=== PATIENT | male | born 1940 | race Caucasian/White ===

== ENCOUNTER 2023-08-29 10:55 | Emergency (ER) | payer MEDICARE ==
[~2023-08-29 10:55] MED LIST: Iopamidol 370 76% 100 ML VIAL ONE; Sodium Chloride 0.9% 100 ML BAG ONE
[2023-08-29] MEDS ORDERED: Piperacillin/Tazobactam 4.5 GM VIAL ONE (11:38)
[2023-08-29] MEDS ORDERED: Vancomycin 1 GM VIAL ONE (11:39)
[2023-08-29] MEDS ORDERED: Sodium Chloride 0.9% 100 ML ONE (11:39)
[2023-08-29] MEDS ORDERED: Sodium Chloride 0.9% 250 ML 250 ML ONE (11:39)
[2023-08-29 11:55] LABS: Hematocrit 27.8 % (42.0-52.0); Hemoglobin 8.7 g/dL (14.0-18.0); Mean Corpuscular HGB CONC 31.2 g/dL (32.0-36.0); Mean Corpuscular Hemoglobin 27.9 pg (27.0-31.0); Mean Corpuscular Volume 89.5 fl (78.0-98.0); Mean Platelet Volume 8.9 fL (7.4-10.4); Platelet Count 355 10x3/uL (130-400); RBC Distribution Width 17.7 % (11.5-14.5); White Blood Cell (WBC) Count 7.9 10x3/uL (4.8-10.8)
[2023-08-29 11:56] LABS: Manual Diff?? YES; Troponin I 0.019 ng/mL (< 0.028)
[2023-08-29 11:58] LABS: ALT (SGPT) 11 U/L (8-55); AST (SGOT) 33 U/L (5-34); Albumin 2.4 g/dL (3.4-4.8); Alkaline Phosphatase 81 U/L (40-110); Anion Gap 13 mmol/L (10-20); BUN (Urea Nitrogen) 13 mg/dL (8.4-25.7); Bilirubin, Total 0.8 mg/dL (0.2-1.2); Calc. Creatinine Clearance 0 mL/min (70-130); Calcium 8.4 mg/dL (7.8-10.44); Carbon Dioxide 26 mmol/L (23-31); Chloride 99 mmol/L (98-107); Estimated GFR 59; Globulin 4.4 g/dL (2.4-3.5); Glucose 90 mg/dL (83-110); Lipase 23 U/L (8-78); Magnesium 1.8 mg/dL (1.6-2.6); Potassium 3.8 mmol/L (3.5-5.1); Protein, Total 6.8 g/dL (5.8-8.1); Sodium 134 mmol/L (136-145)
[2023-08-29 11:59] LABS: Base Excess-Venous 2.6 mmol/L (-2.0 to 3.0); Bicarbonate (HCO3v) 26.5 mmol/L (22.0-28.0); CO2 Tension (PvCO2) 37.2 mmHg (42.0-51.0); Calcium, Ionized 1.03 mmol/L (1.15-1.33); Chloride 102 mmol/L (98-107); Hemoglobin - Calc 10.2 g/dL (14.0-18.0); Potassium 3.7 mmol/L (3.5-5.1); Sodium 134 mmol/L (138-145); T. Carbon Dioxide 27.6 mmol/L (22.0-28.0); vO2 Saturation-calc 99.8 % (60.0-85.0)
[2023-08-29 12:01] LABS: MDiff Complete? YES
[2023-08-29 12:02] LABS: Band 4 % (5-11); Eosinophils 4 % (0-10); Lymphocytes 6 % (21-51); Monocytes 13 % (0-10); Neutrophil 69 % (42-75); Reactive Lymphocytes 4 % (0-10)
[2023-08-29 12:03] LABS: Anisocytosis SLIGHT = 6-15 cells (100X) (0-5/hpf); Hypochromia SLIGHT = 6-15 cells (100X) (0-5/hpf); Platelet Adequacy Comment Appears Adequate
[2023-08-29 12:15] LABS: SARS-CoV-2 NAA Rapid Test Not Detected (NotDetected)
[2023-08-29] MEDS ORDERED: Clindamycin/D5W 600 mg/50 ml Premix Bag ONE (13:14)
[2023-08-29] MEDS ORDERED: Lorazepam 2 MG/ML VIAL ONE (16:44)
== END 2023-08-29 17:05 ==
LOC: MADERS 10:55
DX: T81.43XA Infection following a procedure, organ and space surgical site, initial encounter (principal); L02.818 Cutaneous abscess of other sites; I71.43 Infrarenal abdominal aortic aneurysm, without rupture; J90 Pleural effusion, not elsewhere classified; I77.4 Celiac artery compression syndrome; I77.1 Stricture of artery; E87.3 Alkalosis; I12.9 Hypertensive chronic kidney disease with stage 1 through stage 4 chronic kidney disease, or unspecified chronic kidney disease; E11.22 Type 2 diabetes mellitus with diabetic chronic kidney disease; N18.30 Chronic kidney disease, stage 3 unspecified
CPT/HCPCS: 0240U; 71045; 71275; 74174; 80053; 82330; 82435; 82803; 83605; 83690; 83735; 83880; 84132; 84295; 84484; 85014; 85025; 87040; 93005; 96365; 96367; 96368; 96375; J2060; J2543; J3370; J3490; J7050; Q9967